=== PATIENT | female | born 1985 | race Two or more races ===

== ENCOUNTER 2022-09-06 07:50 | Inpatient (IN) | payer OTHER ==
[~2022-09-06] VITALS: Ht 157.5 cm; Wt 2.7 kg
[2022-09-06] MEDS ORDERED: LABETALOL HCL100 MG PO (08:28)
[2022-09-06] MEDS ORDERED: PRENATAL CAPLE1 EAC1 PO (08:28)
== END 2022-09-09 14:29 | disposition home or self-care (01) | DRG 785 ==
LOC: LDR 07:50 → OB/GYN 07:50 → O/R 10:20 → OB/GYN 11:46
PROVIDERS: ADMIT Obstetrics & Gynecology; ATTEND Obstetrics & Gynecology
PROC: 0UB70ZZ Excision of Bilateral Fallopian Tubes, Open Approach (ICD-10-PCS; 2022-09-06)
PROC: 4A1HXCZ Monitoring of Products of Conception, Cardiac Rate, External Approach (ICD-10-PCS; 2022-09-06)
PROC: 10D00Z1 Extraction of Products of Conception, Low, Open Approach (ICD-10-PCS; principal; 2022-09-06 08:30)
DX: O34.211 Maternal care for low transverse scar from previous cesarean delivery (principal); O99.824 Streptococcus B carrier state complicating childbirth; Z3A.39 39 weeks gestation of pregnancy; Z37.0 Single live birth; Z20.822 Contact with and (suspected) exposure to COVID-19; Z30.2 Encounter for sterilization